=== PATIENT | male | born 1990 | race Caucasian/White ===

== ENCOUNTER 2016-12-08 16:43 | Emergency (ER) | payer OTHER ==
[2016-12-08 16:51] VITALS: BP 125/68; PULSE 100; TEMP 98.2; BMI 25.0
[2016-12-08] MEDS ORDERED: IBUPROFEN 600 MG TABLET (FP) PO ONE ×2 (17:56→17:57)
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
== END 2016-12-08 18:03 | disposition home or self-care (01) ==
LOC: JER 16:43 → JERFT 16:43
DX: S63.592A Other specified sprain of left wrist, initial encounter (principal); X50.0XXA Overexertion from strenuous movement or load, initial encounter; Y35.811A Legal intervention involving manhandling, law enforcement official injured, initial encounter; Y93.89 Activity, other specified; Y92.89 Other specified places as the place of occurrence of the external cause; Y99.0 Civilian activity done for income or pay
CPT/HCPCS: 99281-25

== ENCOUNTER 2017-01-18 15:32 | Emergency (ER) | payer OTHER ==
[2017-01-18] MEDS ORDERED: IBUPROFEN 600 MG TABLET (FP) PO ONE ×2 (15:50→15:59)
[2017-01-18 15:52] VITALS: BP 138/77; PULSE 74; TEMP 97.9; BMI 24.4
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
== END 2017-01-18 16:35 | disposition home or self-care (01) ==
LOC: JERFT 15:32
PROC: 2W3MX1Z Immobilization of Left Lower Extremity using Splint (ICD-10-PCS; principal; 2017-01-18)
DX: S83.422A Sprain of lateral collateral ligament of left knee, initial encounter (principal); X50.1XXA Overexertion from prolonged static or awkward postures, initial encounter; Y35.811A Legal intervention involving manhandling, law enforcement official injured, initial encounter; Y93.89 Activity, other specified; Y92.89 Other specified places as the place of occurrence of the external cause; Y99.0 Civilian activity done for income or pay
CPT/HCPCS: 99281-25

== ENCOUNTER 2019-05-14 03:43 | Emergency (ER) | payer BC, OTHER | END 2019-05-14 09:30 | disposition home or self-care (01) | LOC: JER 03:43 ==

== ENCOUNTER 2022-02-18 04:16 | Emergency (ER) | payer OTHER ==
[2022-02-18 04:23] VITALS: BP 119/77; PULSE 72; TEMP 98.3; BMI 27.1
[2022-02-18] MEDS ORDERED: NAPROXEN 500 MG TABLET PO ONE (04:26)
[2022-02-18] MEDS ORDERED: LIDOCAINE 5% TOPICAL PATCH TP ONE (04:26)
[2022-02-18] MEDS ORDERED: NAPROXEN 500 MG TABLET ONE (04:27)
[2022-02-18] MEDS ORDERED: LIDOCAINE 5% TOPICAL PATCH ONE (04:27)
[2022-02-18] MEDS ORDERED: LIDOCAINE PATCH REMOVAL MC SCH (22:00)
== END 2022-02-18 04:34 | disposition home or self-care (01) ==
LOC: FER 04:16
DX: M62.830 Muscle spasm of back (principal); V49.40XA Driver injured in collision with unspecified motor vehicles in traffic accident, initial encounter
CPT/HCPCS: 99283-25